=== PATIENT | female | born 1980 | race Asian ===

== ENCOUNTER 2019-01-26 10:11 | Emergency (ER) | payer SELFPAY ==
[2019-01-26 10:26] VITALS: BP 126/80
--- NOTE | 2019-01-26 10:38 | UC ---
- HPI Summary HPI Summary: 2 days of R breast mass that was noted. She still gets her monthly periods. has not noticed any skin changes. denies nipple discharge. - History of Current Complaint Hx Obtained From: Patient Hx Last Menstrual Period: 01/13/19 Breast Chief Complaint: Pain - which she later described as discomfort. Breast Pain Aggravating Factors: Nothing Breast Pain Alleviating Factors: Nothing Breast Associated Signs/Symptoms: Nodule/Mass - R - Allergy/Home Medications Allergies/Adverse Reactions: Allergies Allergy/AdvReac Type Severity Reaction Status Date / Time No Known Allergies Allergy Verified 01/26/19 10:26 Home Medications: Home Medications NK [No Home Medications Reported] 01/26/19 [History Confirmed 01/26/19] PMH/Surg Hx/FS Hx/Imm Hx - Additional Past Medical History Additional PMH: no chronic issues Previously Healthy: Yes - Surgical History Surgical History: Yes Surgery Procedure, Year, and Place: wisdom teeth - Family History Family History: mom: lung cancer - Social History Alcohol Use: Occasionally Substance Use Type: None Smoking Status (MU): Never Smoked Tobacco Review of Systems All Other Systems Reviewed And Are Negative: Yes Constitutional: Negative: Fever Skin: Negative: Rash, Bruising Respiratory: Positive: Negative Cardiovascular: Positive: Negative Physical Exam Triage Information Reviewed: Yes Appearance: Well-Appearing Vital Signs: Initial Vital Signs Temp 97.6 F 01/26/19 10:14 Pulse 82 01/26/19 10:14 Resp 17 01/26/19 10:14 BP 126/80 01/26/19 10:14 Pulse Ox 100 01/26/19 10:14 Vital Signs Reviewed: Yes Neck: Positive: No Lymphadenopathy Respiratory Exam: Normal Cardiovascular Exam: Normal Skin: Positive: Significant Lesion(s) - R breast mass noted at 8 o'clock. nontender. no skin changes. no nipple discharge bilat, but does have inverted nipples bilat. Breast Pain Course/Dx - Course Course Of Treatment: 2 day hx of Breast mass and slight tenderness. both nipples are inverted bilat on exam and an approx 2in. long mass palpated w/ no discharge. I strongly recommended seeing a primary care provider to get diagnostic imaging. No fam hx of brca/breast ca. No lymphadenopathy felt. vitals good. - Differential Diagnoses Differential Diagnosis/HQI/PQRI: Breast Mass - Diagnoses Provider Diagnoses: Breast mass in female Discharge - Sign-Out/Discharge Documenting (check all that apply): Patient Departure All imaging exams completed and their final reports reviewed: No Studies - Discharge Plan Condition: Good Disposition: HOME Patient Education Materials: Breast Mass (ED) Referrals: No Primary Care Phys,NOPCP [Primary Care Provider] - Additional Instructions: It is important that you find a primary care provider in the area to order the ultrasound. - Billing Disposition and Condition Condition: GOOD Disposition: Home - Attestation Statements Provider Attestation: This patient was not seen by me. I was available to consult. NEIL
== END 2019-01-26 10:56 | disposition home or self-care (01) ==
LOC: UCEAST 10:11
DX: N63.0 Unspecified lump in unspecified breast (principal)
CPT/HCPCS: 99201; G0463

== ENCOUNTER 2019-04-01 15:20 | Emergency (ER) | payer OTHER ==
--- NOTE | 2019-04-01 16:55 | ED ---
Neck Pain - HPI Summary HPI Summary: Patient complains of right-sided neck pain radiating down into right shoulder 3 days. Denies injury, fever, cough, sore throat, CP, SOB, N/C/D, abdominal pain, change in urine, change in BM. Patient states she took 2 Advil yesterday which provided relief. Medical history is none. - History of Current Complaint Chief Complaint: EDNeckComplaint Stated Complaint: NECK PAIN PER PT Time Seen by Provider: 04/01/19 16:35 Hx Obtained From: Patient Hx Last Menstrual Period: 01/13/19 Onset/Duration Of Injury/Symptoms: Days Mechanism Of Injury: No Known Trauma Timing: Constant Onset/Duration: Gradual Onset Severity Initially: Mild Severity Currently: Mild Pain Intensity: 3 Pain Scale Used: 0-10 Numeric Location: Discrete At: Character: Aching Aggravating Factors: Position, Movement Alleviating Factors: Position, Heat, OTC Meds Associated Signs & Symptoms: Positive: Negative - Allergies/Home Medications Allergies/Adverse Reactions: Allergies Allergy/AdvReac Type Severity Reaction Status Date / Time No Known Allergies Allergy Verified 01/26/19 10:26 PMH/Surg Hx/FS Hx/Imm Hx Endocrine/Hematology History: Denies: Hx Anticoagulant Therapy Cardiovascular History: Denies: Hx Pacemaker/ICD History: Denies: Hx Dialysis Musculoskeletal History: Denies: Hx Gout Sensory History: Denies: Hx Eye Prosthesis Opthamlomology History: Denies: Hx Legally Blind EENT History: Denies: Hx Deafness Neurological History: Denies: Hx Dementia - Cancer History Hx Chemotherapy: No Hx Radiation Therapy: No - Surgical History Surgery Procedure, Year, and Place: wisdom teeth Infectious Disease History: No Infectious Disease History: Denies: Traveled Outside the [place] in Last 30 Days - Family History Known Family History: Positive: Non-Contributory Family History: mom: lung cancer - Social History Alcohol Use: Occasionally Substance Use Type: Reports: None Smoking Status (MU): Never Smoked Tobacco Review of Systems Constitutional: Negative Eyes: Negative ENT: Negative Cardiovascular: Negative Respiratory: Negative Gastrointestinal: Negative Genitourinary: Negative Musculoskeletal: Other Skin: Negative Neurological: Negative Psychological: Normal All Other Systems Reviewed And Are Negative: Yes Physical Exam - Summary Physical Exam Summary: Tenderness along the right sternocleidomastoid muscle into right trapezius muscle. Full range of motion of jaw. Full range of motion of neck with some pain extremity of rotation. Normal range of motion of right shoulder. Lung sounds clear to auscultation bilaterally. Triage Information Reviewed: Yes Vital Signs On Initial Exam: Initial Vitals Temp Pulse Resp BP Pulse Ox 99.4 F 85 18 131/69 99 04/01/19 15:22 04/01/19 15:22 04/01/19 15:22 04/01/19 15:22 04/01/19 15:22 Vital Signs Reviewed: Yes Appearance: Positive: Well-Appearing Skin: Positive: Warm Head/Face: Positive: Normal Head/Face Inspection Eyes: Positive: Normal ENT: Positive: Normal ENT inspection Neck: Positive: Supple Respiratory/Lung Sounds: Positive: Clear to Auscultation Cardiovascular: Positive: Normal Abdomen Description: Positive: Nontender Musculoskeletal: Positive: Normal Neurological: Positive: Normal Psychiatric: Positive: Normal AVPU Assessment: Alert - [place]win Coma Scale Best Eye Response: 4 - Spontaneous Best Motor Response: 6 - Obeys Commands Best Verbal Response: 5 - Oriented Coma Scale Total: 15 Procedures - Sedation Patient Received Moderate/Deep Sedation with Procedure: No Diagnostics - Vital Signs Vital Signs Temp Pulse Resp BP Pulse Ox 04/01/19 15:22 99.4 F 85 18 131/69 99 - Laboratory Lab Statement: Any lab studies that have been ordered have been reviewed, and results considered in the medical decision making process. Neck Course/Dx - Course Course Of Treatment: Patient complains of right-sided neck pain radiating down into right shoulder 3 days. Denies injury, fever, cough, sore throat, CP, SOB , N/C/D, abdominal pain, change in urine, change in BM. Patient states she took 2 Advil yesterday which provided relief. Medical history is none. Vital signs within normal limits. Diagnoses muscle spasm. Rx for Flexeril. - Diagnoses Provider Diagnoses: Neck pain, Muscle spasm, Rash Discharge ED - Sign-Out/Discharge Documenting (check all that apply): Patient Departure - Discharge Plan Condition: Stable Disposition: HOME Prescriptions: Diazepam TAB(*) [Valium TAB(*)] 5 mg PO TID PRN 1 Days #4 tab MDD 3 tabs PRN Reason: Spasms Patient Education Materials: Muscle Spasm (ED) Referrals: Ami Mccarthy MD [Primary Care Provider] - Additional Instructions: Take Valium at night for muscle spasm. You may also take ibuprofen during the day for muscle spasm. Put lotion on the rash. Follow-up with primary care. Return to the ED for any new or worsening symptoms. - Billing Disposition and Condition Condition: STABLE Disposition: Home - Attestation Statements Provider Attestation: I was available for consult. This patient was seen by the [facility]. The patient was not presented to, seen by, or examined by me. Delmer Haskins MD
[2019-04-01 17:36] VITALS: BP 136/70
== END 2019-04-01 17:05 | disposition home or self-care (01) ==
LOC: ED 15:20
DX: M54.2 Cervicalgia (principal); M62.838 Other muscle spasm; R21 Rash and other nonspecific skin eruption
CPT/HCPCS: 99282